=== PATIENT | female | born 2000 | race Caucasian/White ===

== ENCOUNTER → 2021-08-09 21:14 | Observation (INO) | END | disposition home or self-care (01) | LOC: 1NENULAB | PROVIDERS: ADMIT Obstetrics & Gynecology; ATTEND Obstetrics & Gynecology ==

== ENCOUNTER 2021-08-16 19:39 | Inpatient (IN) ==
[2021-08-16] MEDS ORDERED: Ondansetron 4 MG/2 ML VIAL IVP PRN (19:49)
[2021-08-16] MEDS ORDERED: miSOPROStoL 25 MCG TABLET PO PRN (19:49)
[2021-08-16] MEDS ORDERED: Naloxone 0.4 MG/ML INJ IVP PRN (19:49)
[2021-08-16] MEDS ORDERED: Lidocaine 1% 20 ML MDV INFILT PRN (19:49)
[2021-08-16] MEDS ORDERED: Azithromycin 500 MG in 0.9 % Sodium Chloride 250 ML IVPB PRN (19:49)
[2021-08-16] MEDS ORDERED: Famotidine 20 MG/2 ML VIAL IVP PRN (19:49)
[2021-08-16] MEDS ORDERED: Metoclopramide 10 MG/2 ML VIAL IVP PRN (19:49)
[2021-08-16 20:24] LABS: Basophils % 0.3 %; Eosinophils # 0.1 K/mcL (0.0-0.6); Hematocrit 36.7 % (35.3-44.9); Hemoglobin 11.9 g/dL (11.5-15.4); Immature Granulocytes % 0.3 % (0-4); Lymphocytes # 2.9 K/mcL (0.6-4.6); Lymphocytes % 27.9 %; Mean Corpuscular HGB Conc 32.4 g/dL (31.6-35.5); Mean Corpuscular Hemoglobin 26.7 pg (28.0-33.3); Mean Corpuscular Volume 82.3 fL (83.0-100.0); Mean Platelet Volume 9.7 fL (9.4-12.4); Monocytes % 9.5 %; Neutrophils # 6.4 K/mcL (1.6-8.9); Platelet Count 373 K/mcL (140-400); Red Blood Count 4.46 M/mcL (3.82-4.97); Red Cell Distribution Width 13.5 % (11.5-14.5); White Blood Count 10.5 K/mcL (4.3-11.1)
[2021-08-16 20:31] LABS: Amphetamine Screen,Urine Negative ng/mL (Cutoff=1000); Barbiturate Screen,Urine Negative ng/mL (Cutoff=200); Benzodiazepines Screen,Urine Negative ng/mL (Cutoff=200); Cannabinoid Screen,Urine Negative ng/mL (Cutoff = 50); Cocaine Screen,Urine Negative ng/mL (Cutoff= 300); Opiate Screen,Urine Negative ng/mL (Cutoff=300); Phencyclidine Screen,Urine Negative ng/mL (Cutoff=25)
[2021-08-16 21:02] LABS: Influenza A PCR Negative (Negative); Influenza B PCR Negative (Negative); Resp. Syncytial Virus PCR Negative (Negative)
[2021-08-16 21:03] LABS: SARS-CoV-2 by PCR (In House) Negative (Negative)
[2021-08-16] MEDS ORDERED: *HR* Nalbuphine 10 MG/ML AMPUL IV PRN (23:33)
[2021-08-17] MEDS ORDERED: Oxytocin 20 units/ LR 1000 mL 20 UNIT/1,000 ML BAG IVC SCH (01:15)
[2021-08-17 01:21] LABS: Alanine Aminotransferase 9 Units/L (7-52); Aspartate Amino Transferase 17 Units/L (13-39); BUN/Creatinine Ratio 12 (6-26); Blood Urea Nitrogen 7 mg/dL (6-20); Lactate Dehydrogenase 181 Units/L (140-271); Uric Acid 4.1 mg/dL (2.3-7.6); eGFR For African Americans > 60 (> 60); eGFR For Non-African Americans > 60 (> 60)
[2021-08-17 01:30] LABS: Protein/Creatinine Ratio,Urine 0.13 mg/mg (0.00-0.20)
[2021-08-17] MEDS ORDERED: EPHEDrine 50 MG/ML VIAL IVP PRN ×2 (07:01→08:48)
[2021-08-17] MEDS: Ringers Solution, Lactated 1,000 ML IVC SCH ×3 (07:24→21:44)
[2021-08-17] MEDS ORDERED: Ropivacaine/PF 0.2% 20 ML VIAL EP ONE (08:48)
[2021-08-17] MEDS ORDERED: *HR* FentaNYL (PF) 100 MCG/2 ML VIAL EP ONE (08:48)
[2021-08-17] MEDS ORDERED: Epidural Premix (fent/bupiv) 110 ML EP SCH (09:00)
[2021-08-17] MEDS: Epidural Premix (fent/bupiv) 110 ML EP SCH ×2 (09:16→20:48)
[2021-08-17] MEDS ORDERED: *HR* FentaNYL (PF) 100 MCG/2 ML VIAL ONE ×2 (13:41→19:04)
[2021-08-17] MEDS ORDERED: Ropivacaine/PF 0.2% 20 ML VIAL ONE (13:41)
[2021-08-17] MEDS ORDERED: *HR* Labetalol 20 MG/4 ML SYRINGE IVP ONE ×7 (14:20→21:38)
[2021-08-17] MEDS ORDERED: Calcium Gluconate 1,000 MG/10 ML VIAL IVP PRN (14:39)
[2021-08-17] MEDS ORDERED: Magnesium Sulf 20 gm/SW 500mL 20 GM/500 ML IV.SOLN IVC SCH (14:45)
[2021-08-18] MEDS ORDERED: Ondansetron ODT 4 MG TAB.RAPDIS SL PRN ×2 (02:33→06:00)
[2021-08-18] MEDS ORDERED: Rho Immune Globulin 1,500 UNIT SYRINGE IM PRN ×2 (02:33→05:47)
[2021-08-18] MEDS ORDERED: Lanolin 7 G OINT...G. TP PRN ×2 (02:33→05:47)
[2021-08-18] MEDS ORDERED: Measles/Mumps/Rubella Vacc 0.5 ML VIAL SQ PRN ×2 (02:33→05:47)
[2021-08-18] MEDS ORDERED: Benzocaine/Menthol 56 GM AEROSOL SPRAY TP PRN ×2 (02:33→05:47)
[2021-08-18] MEDS ORDERED: Oxytocin 20 units/ LR 1000 mL 20 UNIT/1,000 ML BAG IVC SCH ×2 (02:45→05:47)
[2021-08-18] MEDS ORDERED: Acetaminophen 325 MG TABLET PO SCH (02:45)
[2021-08-18] MEDS ORDERED: Ibuprofen 600 MG TABLET PO SCH (05:33)
[2021-08-18] MEDS: Acetaminophen 325 MG TABLET PO SCH ×3 (06:15→19:30)
[2021-08-18] MEDS: Ibuprofen 600 MG TABLET PO SCH ×3 (06:15→19:29)
[2021-08-18] MEDS: Prenatal Vit/FA 1 EACH TABLET PO SCH (07:46)
[2021-08-18 08:08] LABS: Basophils % 0.1 %; Lymphocytes % 5.5 %; Mean Platelet Volume 9.9 fL (9.4-12.4)
[2021-08-18 08:10] LABS: Hematocrit 25.7 % (35.3-44.9); Hemoglobin 8.5 g/dL (11.5-15.4); Immature Granulocytes % 0.6 % (0-4); Lymphocytes # 1.5 K/mcL (0.6-4.6); Mean Corpuscular HGB Conc 33.1 g/dL (31.6-35.5); Mean Corpuscular Hemoglobin 27.2 pg (28.0-33.3); Mean Corpuscular Volume 82.4 fL (83.0-100.0); Monocytes # 2.1 K/mcL (0.0-1.3); Monocytes % 7.8 %; Platelet Count 321 K/mcL (140-400); Red Blood Count 3.12 M/mcL (3.82-4.97); Red Cell Distribution Width 13.3 % (11.5-14.5); White Blood Count 26.5 K/mcL (4.3-11.1)
[2021-08-18 08:12] LABS: Neutrophils # 22.8 K/mcL (1.6-8.9)
[2021-08-18 08:28] LABS: Platelet Estimate Normal (Normal)
[2021-08-18] MEDS ORDERED: Prenatal Vit/FA 1 EACH TABLET PO SCH (09:00)
[2021-08-18] MEDS ORDERED: Magnesium Sulf 20 gm/SW 500mL 20 GM/500 ML IV.SOLN IVC SCH (10:30)
[2021-08-18] MEDS ORDERED: Ringers Solution, Lactated 1,000 ML IVC SCH (11:00)
[2021-08-18] MEDS ORDERED: miSOPROStoL 100 MCG TABLET RC ONE (16:26)
[2021-08-19] MEDS: Ibuprofen 600 MG TABLET PO SCH ×3 (02:58→19:00)
[2021-08-19] MEDS: Acetaminophen 325 MG TABLET PO SCH ×3 (02:59→19:07)
[2021-08-19] MEDS: Prenatal Vit/FA 1 EACH TABLET PO SCH (09:16)
[2021-08-20] MEDS: Acetaminophen 325 MG TABLET PO SCH (01:13)
[2021-08-20] MEDS: Ibuprofen 600 MG TABLET PO SCH ×2 (01:14→10:11)
[2021-08-20 04:34] VITALS: O2SAT 99
[2021-08-20 06:45] VITALS: TEMP 98.1
[2021-08-20] MEDS: Prenatal Vit/FA 1 EACH TABLET PO SCH (10:10)
[2021-08-20 11:23] VITALS: PULSE 90
[2021-08-20 11:25] VITALS: BP 126/85
== END 2021-08-20 13:39 | disposition home or self-care (01) | DRG 560 ==
LOC: 1NENULAB 19:39 → 1NENUOBS 08-18 05:46
PROVIDERS: ADMIT Student in an Organized Health Care Education/Training Program; ATTEND Student in an Organized Health Care Education/Training Program